=== PATIENT | female | born 1965 | race Caucasian/White ===

== ENCOUNTER → 2020-08-24 16:26 | Outpatient (CLI) | payer OTHER, SELFPAY ==
--- NOTE | ~2020-08-24 | XR_ITS ---
EXAMINATION: XR foot RT min 3V DATE: 08/24/2020 16:38 INDICATION: Pain and swelling of the right foot TECHNIQUE: Dorsoplantar, lateral, and 2 oblique views of the right foot were obtained. COMPARISON: None. FINDINGS: The bones are osteopenic. No fractures identified. Bone alignment is normal. There is moder ate osteoarthritis of multiple interphalangeal joints. A plantar calcaneal spur is noted. The soft ti ssues are unremarkable. IMPRESSION: 1. No acute osseous abnormality. Reviewed, dictated and finalized at location A.
== END ==
PROVIDERS: PCP Family Medicine Adolescent Medicine; Visit Provider Family Medicine Adolescent Medicine
DX: M79.671 Pain in right foot (principal)
CPT/HCPCS: 73630

== ENCOUNTER 2022-03-17 08:44 | Outpatient (RCR) | payer OTHER, SELFPAY ==
--- NOTE | 2022-03-17 10:17 | PTOPEVAL1 ---
Assessment and note entered by Evonne Rogers, PT, CLT Evaluation Information Assessment Status Evaluation Diagnosis B LE lymphedema Onset January 2022 Reported Pain Level Pain Score 2: Self Report Additional Pain Score Comments R knee and leg pain, does not really limit her activity, just hurts when get up fast or move suddenly Assessment PT Clinical Summary Silvina has the diagnosis of B LE lymphedema. She reports increase in leg size over the past few months, with more bruising over legs. Her history includes HTN, gout and R knee pain. She is completing a steroid pack for chronic cold. With the evaluation, she has a combination of lipedema, with larger thighs and lateral hips and lymphedema. There is bruising and varicose veins though out both legs, without any redness or fibrotic tissue. The L leg is slightly larger than the R with the circumferential measurement: R is 772 cm and L is 789 cm. Skilled PT services are indicated for complete lymphedema treatment: compression to legs, intermittent compression pump, manual lymph drainage and education for self care of lymphedema and compression garment for management of her edema. Plan of Care Interventions Intermittent Compression,Lymphedema Compression Pump ,Manual Lymph Drainage,Patient/Caregiver Education, Therapeutic Exercise PT Services Indicated Yes Treatment Frequency and 0-2x/wk for 8 weeks, due to availability of Duration therapist, will not be able to start for a few weeks These treatments will address the objective and functional deficits as defined above. The patient will be advanced safely and appropriately in order for the patient to progress towards his/her prior level of function. Additional exercises will be introduced and as well as a comprehensive home exercise program upon discharge, if needed, ?to ensure carryover of functional gains achieved in the clinic. This treatment plan has been reviewed and agreement upon by the patient.
--- NOTE | 2022-03-17 10:26 | PCPTNOTE ---
pt signed consent and her info was faxed to [employer] for insurance auth/order reduction kit and compression anklet; issued pt handout for [employer] with # and information.
--- NOTE | 2022-03-22 09:13 | PCPTNOTE ---
received email from [facility], her compression garments are not covered by her insurance. Called pt and left a voice message of this and that she would need one set of reduction kit, to bring to her first treatment appointment.
--- NOTE | 2022-04-12 17:13 | PCPTNOTE ---
Called and spoke with Pt 20mins after appointment time. Pt apologized for forgetting to cancel this appointment due to not having her reduction kit yet. Spoke with Pt and she does not think she will be able to get her reduction kit until later on this month or next, (May). Cancelled Sunday04/14/22 appointment at 13:45. Informed Pt the Therapist will be in contact.
--- NOTE | 2022-04-17 16:10 | PCPTNOTE ---
talked with pt on the phone; her insurance does not cover reduction kits and she cannot afford them at this time. Discussed compression wraps with her and she does not want them. She thinks she can buy the reduction kit in May. Discussed with her to call for reeval appt, to restart therapy. And she is to call if she has any additional questions.
--- NOTE | 2022-06-02 15:11 | PCPTNOTE ---
PHYSICAL THERAPY DISCHARGE 06-02-22 Attending Provider: Chiquita Moeller PA-C Patient:Silvina Simon Date of :1965 Mrs. Simon has not returned for any further treatments since the initial evaluation on 03/17/2022, for the diagnosis of LE lymhpedema, therefore she will be discharged at this time. Patient?s initial visit was on Thank you for referring this patient to [facility].
== END 2022-06-02 12:00 | disposition home or self-care (01) ==
LOC: ANHPT 08:44
PROVIDERS: PCP Family Medicine Adolescent Medicine; Visit Provider Physician Assistant
DX: R60.0 Localized edema (principal)
CPT/HCPCS: 97161

== ENCOUNTER → 2022-07-22 09:09 | Outpatient (CLI) | payer OTHER, SELFPAY ==
--- NOTE | ~2022-07-22 | XR_ITS ---
Left Forearm AP and lateral views of the left forearm were performed. Clinical History: Pain Findings: No fracture or dislocation is seen. Osseous alignment in anatomic. Joint spaces are prese rved. Soft tissues are unremarkable. Impression: Unremarkable exam. Reviewed, dictated and finalized at location M. Impression: Unremarkable exam.
--- NOTE | ~2022-07-22 | XR_ITS ---
Left wrist Technique: PA and lateral views were obtained. Clinical History: Pain Findings: No acute fracture or dislocation is seen. Osseous alignment is anatomic. Joint spaces are p reserved. Soft tissues are unremarkable. Impression: Unremarkable left wrist radiographs. Reviewed, dictated and finalized at location M. Impression: Unremarkable left wrist radiographs.
== END ==
PROVIDERS: PCP Family Medicine Adolescent Medicine; Visit Provider Family Medicine Adolescent Medicine
DX: M79.632 Pain in left forearm (principal); S59.912A Unspecified injury of left forearm, initial encounter
CPT/HCPCS: 73090; 73100

== ENCOUNTER 2024-08-01 02:05 | Day surgery (SDC) | payer OTHER, SELFPAY ==
[2024-07-28 09:35] VITALS: BMI 37.8
--- OUTSIDE RECORDS SUMMARY | 2024-08-01 02:08 | XMS_ITS | Clinical Summary ---
Author Organization [facility] Address [address] [place] [id number] Phone Care Team Providers Care Post Framer Name Role Phone Royce Roger MD Primary Care Provider [phone] Allergies Active Allergy Reactions Criticality Noted Date Comments Ciprofloxacin 12/18/2018 Penicillins 12/18/2018 Sulfa Antibiotics 12/18/2018 Medications furosemide (LASIX) 20 MG tablet 1 tab/cap qday 4 12/23/2015 Active simvastatin (ZOCOR) 10 MG tablet 1 tab/cap qday 6 03/22/2017 Active metoprolol succinate XL (TOPROL-XL) 50 MG 24 hr tablet 1 tab/cap qday 0 07/18/2015 Active allopurinol (ZYLOPRIM) 300 MG tablet Take 300 mg by mouth 1 (one) time each day 2 09/25/2018 Active predniSONE (DELTASONE) 5 MG tablet Take 5 mg by mouth 1 (one) time each day 0 10/24/2018 Active albuterol HFA (PROVENTIL HFA;VENTOLIN HFA) 108 (90 Base) MCG/ACT inhaler INHALE 2 PUFFS INTO THE LUNGS EVERY 4 HOURS NEEDED 04/08/2019 Active indomethacin (INDOCIN) 50 MG capsule TAKE 1 CAPSULE BY MOUTH 3 TIMES A DAY NEEDED FOR GOUT 05/20/2019 Active triamcinolone (KENALOG) 0.1 % cream APPLY TO RASH TWICE A DAY UNTIL CLEAR 03/26/2019 Active baclofen (LIORESAL) 10 MG tablet Take 10 mg by mouth every 8 (eight) hours if needed 03/18/2021 Active diclofenac (VOLTAREN) 75 MG EC tablet Take 75 mg by mouth 2 (two) times a day if needed 03/18/2021 Active atorvastatin (LIPITOR) 20 MG tablet 10/03/2021 Active Active Problems Problem Noted Date Diagnosed Date Essential hypertension 06/18/2019 Localized edema 11/03/2015 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 IgA nephropathy 11/18/2014 Immunizations Immunization Administration Dates Next Due Influenza, Injectable, Quadrivalent 01/21/2020 Sars-cov-2, Unspecified 07/17/2020,06/16/2020 Family History Medical History Relation Comments Malignant neoplastic disease Mother Kidney disease Neg Hx Kidney stone Neg Hx Relation Status Comments Mother Social History Tobacco Use Types Packs/Day Years Used Date Smoking Tobacco: Never Smokeless Tobacco: Never Tobacco Cessation:Counseling Given: Not Answered Alcohol Use Standard Drinks/Week Comments No 0 (1 standard drink = 0.6 oz pur e alcohol) Comments Unknown Sex and Gender Information Value Date Recorded Sex Assigned at Not on file Legal Sex Female 9:43 AM [facility] Gender Identity Not on file Sexual Orientation Not on file Last Filed Vital Signs Vital Sign Reading Time Taken Comments Blood Pressure 134/76 02/15/2022 3:30 PM [employer] Pulse 72 11/03/2015 12:01 AM CDT Temperature 36.4 C (97.6 F) 02/15/2022 3:30 PM [employer] Respiratory Rate 18 02/15/2022 3:30 PM [employer] Oxygen Saturation - - Inhaled Oxygen Concentration - - Weight 103 kg (226 lb 14.4 oz) 02/15/2022 3:30 P M [employer] Height 162.6 cm (5' 4 ) 02/15/2022 3:30 PM [employer] Body Mass Index 38.95 02/15/2022 3:30 PM [employer] Plan of Treatment Health Maintenance Due Date Last Done Comments Influenza Vaccine (Season Ended) 2024 Insurance [facility] Care Teams Post Framer Relationship Specialty Start Date End Date Royce Roger MD [phone] [id number] PCP - General Family Medicine 12/18/18
[2024-08-01 10:20] VITALS: BP 151/90; PULSE 76; RESP 18; TEMP 36.4; O2SAT 99; BMI 38.0
[2024-08-01] MEDS: LACTATED RINGERS 1,000 ML 150 ML IV CONT (10:22)
--- NOTE | 2024-08-01 10:27 | P.PNAN_ITS ---
Anes - Initial Pre Proc Eval Procedure: Operation Date: 08/01/24 11:30 Proposed Procedures p Screening Colonoscopy - Chilo Fischer MD Date/Time: 08/01/24 10:27 Surgeon: Chilo Fischer MD Pre Op Diagnosis: Screening,gout,hyperlipidemia Patient Data Age: 58 Gender: F Height: 1.63 m Weight: 100.6 kg Last Vital Signs Temp 97.6 F 08/01/24 10:20 Pulse 76 08/01/24 10:20 Resp 18 08/01/24 10:20 BP 151/90 H 08/01/24 10:20 Pulse Ox 99 08/01/24 10:20 O2 Del Method Room Air 08/01/24 10:20 Allergies Allergy/AdvReac Type Severity Reaction Status Date / Time banana Allergy Unknown Hives Verified 08/01/24 10:18 ciprofloxacin Allergy Unknown Rash Verified 08/01/24 10:18 Penicillins Allergy Unknown Cough Verified 08/01/24 10:18 Sulfa (Sulfonamide Allergy Unknown Rash Verified 08/01/24 10:18 Antibiotics) Home Medications ?Medication ?Instructions ?Recorded ?Confirmed ?Type multivitamin 1 tablet PO DAILY 02/20/19 08/01/24 History metoprolol succinate 50 mg 50 mg PO DAILY #90 tabs 11/04/23 08/01/24 Rx tablet,extended release 24 hr allopurinol 300 mg tablet See Rx Instructions .Route 04/23/24 08/01/24 Rx .COMPLEX #90 tabs furosemide 20 mg tablet 20 mg PO QAM #90 tabs 04/23/24 08/01/24 Rx atorvastatin 20 mg tablet See Rx Instructions .Route 05/01/24 08/01/24 Rx .COMPLEX #90 tabs indomethacin 50 mg capsule 50 mg PO TID PRN stomach upset 07/28/24 08/01/24 History Patient hx anesthesia problems: none Family hx anesthesia problems: none Results Review: All pre-operative results and documents have been reviewed as part of the pre- operative evaluation. [facility] Past Medical History Medical History IgA nephropathy (1998) Hyperlipidemia Hypertension Renal disease Surgical History Surgical History Status post biopsy of kidney Family History Family History Mother Carcinoma of colon Father Polio Grandparent Cerebrovascular accident Tongue cancer Lung cancer Other Family history of elevated blood lipids Social History Social History Smoking status: Never smoker Second hand tobacco smoke exposure: No Alcohol intake: never Substance use: never Substance use type: does not use Do You Feel Safe in your Home?: Yes Lack of Transportation: No Lack of Food: Never True Current Housing: I Have Housing Concerned About Future Housing: No Difficulty Paying Gas/Electric Bills: No Difficulty Paying for Meds: No Currently Unemployed: No Education: Master's Degree or Higher Living arrangements: with family Occupation/Education: occupation Gender identity (if verbalized by the patient): Female Sexual Orientation (if Verbalized by the Patient): Lesbian, Renteria, or Homosexual Spiritual care concerns: No Agree to blood products: Yes Anes - Eval Final PreProcedure Day of Procedure 08/01/24 10:27 Patient weight: obese Heart: regular rate and rhythm Lungs: clear to auscultation Airway: Mallampati scale class III Neurological: alert and oriented Last oral intake: >/= 8 hours ASA classification: III Emergent: no Anesthetic plan: proceed Anesthesia type and monitoring: general GIVS and standard monitoring Results Review: All pre-operative results and documents have been reviewed as part of the pre- operative evaluation. Informed Consent: The patient's anesthetic plan and its attendant risks and benefits were discussed with the patient/family/POA. Questions were solicited and answers provided to the satisfaction of the patient/family/POA.
--- NOTE | 2024-08-01 11:02 | PM.HPGS ---
History of Present Illness History of Present Illness Consent: Risks, benefits, and alternatives have been discussed and questions answered. Patient agrees to proceed with procedure. Chief complaint: Screening,gout,hyperlipidemia Narrative: Silvina Simon is a 58 year old female here for colonoscopy and her last one more than 5 years ago, mother had colon cancer Review of Systems Review of Systems: All systems reviewed & are unremarkable except as noted in HPI and below PMFSH Past Medical History Medical History IgA nephropathy (1998) Hyperlipidemia Hypertension Renal disease Surgical History Surgical History Status post biopsy of kidney Family History Family History Mother Carcinoma of colon Father Polio Grandparent Cerebrovascular accident Tongue cancer Lung cancer Other Family history of elevated blood lipids Social History Social History Smoking status: Never smoker Second hand tobacco smoke exposure: No Alcohol intake: never Substance use: never Substance use type: does not use Do You Feel Safe in your Home?: Yes Lack of Transportation: No Lack of Food: Never True Current Housing: I Have Housing Concerned About Future Housing: No Difficulty Paying Gas/Electric Bills: No Difficulty Paying for Meds: No Currently Unemployed: No Education: Master's Degree or Higher Living arrangements: with family Occupation/Education: occupation Gender identity (if verbalized by the patient): Female Sexual Orientation (if Verbalized by the Patient): Lesbian, Renteria, or Homosexual Spiritual care concerns: No Agree to blood products: Yes Meds Home Medications and Allergies Home Medications ?Medication ?Instructions ?Recorded ?Confirmed ?Type multivitamin 1 tablet PO DAILY 02/20/19 08/01/24 History metoprolol succinate 50 mg 50 mg PO DAILY #90 tabs 11/04/23 08/01/24 Rx tablet,extended release 24 hr allopurinol 300 mg tablet See Rx Instructions .Route 04/23/24 08/01/24 Rx .COMPLEX #90 tabs furosemide 20 mg tablet 20 mg PO QAM #90 tabs 04/23/24 08/01/24 Rx atorvastatin 20 mg tablet See Rx Instructions .Route 05/01/24 08/01/24 Rx .COMPLEX #90 tabs indomethacin 50 mg capsule 50 mg PO TID PRN stomach upset 07/28/24 08/01/24 History Allergies Allergy/AdvReac Type Severity Reaction Status Date / Time banana Allergy Unknown Hives Verified 08/01/24 10:18 ciprofloxacin Allergy Unknown Rash Verified 08/01/24 10:18 Penicillins Allergy Unknown Cough Verified 08/01/24 10:18 Sulfa (Sulfonamide Allergy Unknown Rash Verified 08/01/24 10:18 Antibiotics) Vital Signs Vital Signs - 24 hr 08/01/24 10:20 Temperature 97.6 F Pulse Rate 76 Respiratory Rate 18 Blood Pressure 151/90 H Pulse Oximetry 99 Oxygen Delivery Room Air Exam Const: General: comfortable and no acute distress HENMT: Face/Nose/Sinus: Normal nares present Eyes: General: appearance normal, both eyes and all related structures Neck: Neck: no JVD Resp: Auscultation: clear to auscultation bilaterally Cardio: Rate: regular rate Rhythm: regular rhythm GI: Inspection: non-distended GI Palp: Yes Soft to palpation Skin: General skin exam: normal color Neuro: Speech: normal speech Extrem: General: normal to inspection Psych: Mental Status: mental status grossly normal Assessment and Plan Assessment and plan (1) Family hx of colon cancer: Code(s): Z80.0 - Family history of malignant neoplasm of digestive organs Status: Acute Assessment and Plan: colonoscopy
[2024-08-01 11:20] VITALS: BP 121/59; PULSE 75; RESP 32; O2SAT 97
[2024-08-01 11:30] VITALS: BP 124/52; PULSE 74; RESP 15; O2SAT 100
[2024-08-01 11:40] VITALS: BP 134/85; PULSE 65; RESP 23; O2SAT 100
== END 2024-08-01 12:02 | disposition home or self-care (01) ==
PROVIDERS: PCP Family Medicine Adolescent Medicine; Referring Provider Nurse Practitioner Family; Visit Provider Internal Medicine Gastroenterology
PROC: 0DJD8ZZ Inspection of Lower Intestinal Tract, Via Natural or Artificial Opening Endoscopic (ICD-10-PCS; CPT 45378; principal; 2024-08-01 11:30)
DX: Z12.11 Encounter for screening for malignant neoplasm of colon (principal); D12.3 Benign neoplasm of transverse colon; K64.8 Other hemorrhoids; K57.30 Diverticulosis of large intestine without perforation or abscess without bleeding; E78.5 Hyperlipidemia, unspecified; I10 Essential (primary) hypertension; M10.9 Gout, unspecified; N28.9 Disorder of kidney and ureter, unspecified; E66.9 Obesity, unspecified; Z68.38 Body mass index [BMI] 38.0-38.9, adult; Z80.0 Family history of malignant neoplasm of digestive organs; Z80.8 Family history of malignant neoplasm of other organs or systems; Z80.1 Family history of malignant neoplasm of trachea, bronchus and lung; Z82.49 Family history of ischemic heart disease and other diseases of the circulatory system
CPT/HCPCS: 45385; 88305; J2704; J7120